=== PATIENT | female | born 1990 | race Caucasian/White ===

== ENCOUNTER 2018-09-16 17:42 | Emergency (ER) | payer BC, OTHER ==
[2018-09-16 17:51] VITALS: RESP 18
--- NOTE | 2018-09-16 18:40 | ED ---
General Adult HPI - General Chief complaint: Psychiatric Symptoms Stated complaint: mental health Time Seen by Provider: 09/16/18 17:50 Source: patient, family, police, RN notes reviewed Mode of arrival: ambulatory Limitations: no limitations - History of Present Illness Initial comments: Is a 28-year-old female presents emergency Department for evaluation. According to them reports the patient's mother called the police to have her committed. Mother is filling a petition. According to the patient hurt her mother had quite a few issues in today she did make a statement to her father that she if she hung herself her mother might realize then her mother is the one that needs help. She states she wasn't suicidal she was just making a comment to her father that at some point may be her mom will realize that she needs some mental health help. Patient states she never been suicidal is not suicidal and has no desire to harm her self. Patient denies any drug use and states she hasn't drank in 3 years. Patient states she has no mental health history but she does see a counselor to try to deal with some of the issues with her mother. Patient denies any physical complaints today. Patient states she is not sexually active. - Related Data Home Medications Medication Instructions Recorded Confirmed Baclofen [Lioresal] 10 mg PO TID PRN 09/16/18 09/16/18 Ibuprofen [Motrin Ib] 200 mg PO Q4H PRN 09/16/18 09/16/18 clonazePAM [KlonoPIN] 0.5 mg PO TID PRN 09/16/18 09/16/18 Allergies Allergy/AdvReac Type Severity Reaction Status Date / Time No Known Allergies Allergy Verified 09/16/18 18:26 Review of Systems ROS Statement: Those systems with pertinent positive or pertinent negative responses have been documented in the HPI. ROS Other: All systems not noted in ROS Statement are negative. Past Medical History Past Medical History: No Reported History History of Any Multi-Drug Resistant Organisms: None Reported Past Surgical History: No Surgical Hx Reported Past Psychological History: Anxiety, Depression Smoking Status: Never smoker Past Alcohol Use History: None Reported Past Drug Use History: None Reported General Exam - General Exam Comments Initial Comments: GENERAL: Patient is well-developed and well-nourished. Patient is nontoxic and well- hydrated and is in no acute distress. ENT: Neck is soft and supple. No significant lymphadenopathy is noted. Oropharynx is clear. Moist mucous membranes. Neck has full range of motion without eliciting any pain. EYES: The sclera were anicteric and conjunctiva were pink and moist. Extraocular movements were intact and pupils were equal round and reactive to light. Eyelids were unremarkable. PULMONARY: Unlabored respirations. Good breath sounds bilaterally. No audible rales rhonchi or wheezing was noted. CARDIOVASCULAR: There is a regular rate and rhythm without any murmurs gallops or rubs. ABDOMEN: Soft and nontender with normal bowel sounds. No palpable organomegaly was noted. There is no palpable pulsatile mass. SKIN: Skin is clear with no lesions or rashes and otherwise unremarkable. NEUROLOGIC: Patient is alert and oriented x3. Cranial nerves II through XII are grossly intact. Motor and sensory are also intact. Normal speech, volume and content. Symmetrical smile. MUSCULOSKELETAL: Normal extremities with adequate strength and full range of motion. No lower extremity swelling or edema. No calf tenderness. LYMPHATICS: No significant lymphadenopathy is noted PSYCHIATRIC: Normal psychiatric evaluation. Patient denies any suicidal homicidal ideations Limitations: no limitations Course Vital Signs 09/16/18 09/16/18 17:46 18:11 Temperature 98.4 F 98.1 F Pulse Rate 95 97 Respiratory 18 18 Rate Blood Pressure 124/79 129/83 O2 Sat by Pulse 98 100 Oximetry Medical Decision Making - Medical Decision Making EPS evaluated the patient and spoke with the psychiatrist and they believe the patient had reasonable follow-up. Patient has a point with a counselor tomorrow and she was given other phone numbers that she could reach out to. I went back into reevaluate the patient she stated she was not at all suicidal and nose she will be safe and stated she only was saying those things earlier to get a response from her mother. - Lab Data Lab Results 09/16/18 Range/Units 19:23 Urine Opiates Screen Not Detected (NotDetected) Ur Oxycodone Screen Not Detected (NotDetected) Urine Methadone Screen Not Detected (NotDetected) Ur Propoxyphene Screen Not Detected (NotDetected) Ur Barbiturates Screen Not Detected (NotDetected) U Tricyclic Antidepress Not Detected (NotDetected) Ur Phencyclidine Scrn Not Detected (NotDetected) Ur Amphetamines Screen Not Detected (NotDetected) U Methamphetamines Scrn Not Detected (NotDetected) U Benzodiazepines Scrn Not Detected (NotDetected) Urine Cocaine Screen Not Detected (NotDetected) U Marijuana (THC) Screen Detected H (NotDetected) Disposition Clinical Impression: Situational depression Disposition: HOME SELF-CARE Condition: Good Instructions (If sedation given, give patient instructions): Depression (ED) Is patient prescribed a controlled substance at d/c from ED?: No Referrals: None,Stated [Primary Care Provider] - 1-2 days Time of Disposition: 20:18
[2018-09-16 19:49] LABS: Amphetamine Screen,Urine Not Detected (NotDetected); Barbiturate Screen,Urine Not Detected (NotDetected); Benzodiazepines Screen,Urine Not Detected (NotDetected); Cocaine Screen,Urine Not Detected (NotDetected); Methadone Screen, Urine Not Detected (NotDetected); Opiate Screen,Urine Not Detected (NotDetected); Oxycodone Screen, Urine Not Detected (NotDetected); Phencyclidine Screen,Urine Not Detected (NotDetected); Tricyclic Antidepressant,Urine Not Detected (NotDetected); Urn Cannabinoid Scrn Detected (NotDetected)
[2018-09-16 20:35] VITALS: BP 121/66; PULSE 72; TEMP 98.6
== END 2018-09-16 20:32 | disposition home or self-care (01) ==
LOC: EC 17:42
DX: F43.21 Adjustment disorder with depressed mood (principal)
CPT/HCPCS: 80306; 82075; 99284